=== PATIENT | male | born 1965 | race Caucasian/White ===

== ENCOUNTER 2022-10-10 08:04 | Outpatient (CLI) | payer OTHER, SELFPAY ==
--- NOTE | 2022-10-10 08:30 | US_ITS ---
WS: [id number] RIGHT UPPER QUADRANT ULTRASOUND HISTORY: RUQ abd pain - high concern for infected gallbladder COMPARISON: None available. Liver: 17.5 cm in length. Moderate enlargement of the liver with increased attenuation and hepatic st eatosis. No mass or bile duct dilatation. The entire liver is not very well visualized. No bile duct dilatation. Portal Vein: Normal hepatopetal flow with monophasic waveform. Gallbladder: Normally distended gallbladder with no stones or wall thickening. CBD: 0.5 cm Pancreas: Limited visualization of the pancreas. Right kidney: 11.1 cm in length. Normal size and echogenicity. No hydronephrosis or mass. Aorta and IVC: Unremarkable abdominal aorta and IVC. No ascites. US/US abdomen limited [id number] IMPRESSION: 1. Moderately enlarged liver with marked hepatic steatosis. 2. Negative gallbladder. 3. No bile duct dilatation.
== END 2022-10-10 08:05 | disposition home or self-care (01) ==
LOC: RAD 08:11
PROVIDERS: PCP Family Medicine; Visit Provider Family Medicine
DX: R10.11 Right upper quadrant pain (principal); K76.0 Fatty (change of) liver, not elsewhere classified
CPT/HCPCS: 76705; 80053; 83036; 83690; 85025; 86141

== ENCOUNTER → 2024-02-20 07:38 | Outpatient (BNVA) | payer OTHER, SELFPAY | PROVIDERS: PCP Family Medicine; Visit Provider Family Medicine | DX: E53.8 Deficiency of other specified B group vitamins (principal); Z00.00 Encounter for general adult medical examination without abnormal findings; Z51.81 Encounter for therapeutic drug level monitoring; G47.10 Hypersomnia, unspecified; Z13.220 Encounter for screening for lipoid disorders; E11.9 Type 2 diabetes mellitus without complications | CPT/HCPCS: 80053; 80061; 82607; 83036; 85025 ==

== ENCOUNTER 2024-02-25 14:20 | Outpatient (CLI) | payer OTHER, SELFPAY | END 2024-02-25 14:21 | disposition home or self-care (01) | LOC: SLEEP 14:21 | PROVIDERS: PCP Family Medicine; Visit Provider Family Medicine | DX: Z53.9 Procedure and treatment not carried out, unspecified reason (principal) | CPT/HCPCS: 80053; 80061; 82607; 83036; 85025 ==